=== PATIENT | male | born 1955 | race Two or more races ===

== ENCOUNTER 2018-05-17 15:12 | Outpatient (CLI) | payer OTHER | END 2018-05-17 15:33 | disposition home or self-care (01) | LOC: RAD 501 15:12 | DX: F17.200 Nicotine dependence, unspecified, uncomplicated (principal); B19.20 Unspecified viral hepatitis C without hepatic coma; B18.2 Chronic viral hepatitis C ==

== ENCOUNTER 2020-10-22 10:33 | Outpatient (CLI) | payer OTHER | END 2020-10-22 10:36 | disposition home or self-care (01) | LOC: RAD 10:33 | PROVIDERS: ATTEND Internal Medicine | DX: I10 Essential (primary) hypertension (principal); R97.20 Elevated prostate specific antigen [PSA]; B18.2 Chronic viral hepatitis C; F17.200 Nicotine dependence, unspecified, uncomplicated; E78.89 Other lipoprotein metabolism disorders; F52.21 Male erectile disorder; N41.0 Acute prostatitis; N40.1 Benign prostatic hyperplasia with lower urinary tract symptoms ==

== ENCOUNTER 2021-09-02 10:17 | Outpatient (CLI) | payer OTHER | END 2021-09-02 10:39 | disposition home or self-care (01) | LOC: TOM 10:17 | PROVIDERS: ATTEND Internal Medicine Pulmonary Disease | DX: E06.2 Chronic thyroiditis with transient thyrotoxicosis (principal); Z72.0 Tobacco use ==

== ENCOUNTER 2024-09-11 14:40 | Outpatient (CLI) | payer OTHER | END 2024-09-11 14:52 | disposition home or self-care (01) | LOC: TOM 14:40 | PROVIDERS: ATTEND Internal Medicine Pulmonary Disease | DX: J43.2 Centrilobular emphysema (principal); Z72.0 Tobacco use ==